=== PATIENT | female | born 1995 | race Two or more races ===

== ENCOUNTER 2024-07-25 21:40 | Emergency (ER) | payer OTHER ==
[~2024-07-25] VITALS: Ht 165.1 cm; Wt 68.9 kg
[2024-07-26] MEDS ORDERED: METHYLPREDNISOLONE SOD SUCC 125 MG VIAL IM STA (00:46)
[2024-07-26] MEDS ORDERED: CEFTRIAXONE SODIUM 1,000 MG VIAL IM STA (00:46)
[2024-07-26] MEDS ORDERED: CEFTRIAXONE SODIUM 1,000 MG VIAL ONE (00:49)
[2024-07-26] MEDS ORDERED: METHYLPREDNISOLONE SOD SUCC 125 MG VIAL ONE (00:49)
[2024-07-26] MEDS ORDERED: CEPHALEXIN500 M1 PO (00:59)
[2024-07-26] MEDS ORDERED: ORASEP SPRAY30 ML MM (00:59)
== END 2024-07-26 01:02 ==
LOC: ER 22:23
DX: J03.80 Acute tonsillitis due to other specified organisms (principal)